=== PATIENT | female | born 1970 | race Hispanic/Latino ===

== ENCOUNTER 2018-01-17 09:46 | Emergency (ER) | payer MEDICARE ==
[2018-01-17 10:03] VITALS: BP 151/85
--- NOTE | 2018-01-17 11:21 | Emergency Department Report ---
ED Anxiety HPI - General Chief Complaint: Anxiety Stated Complaint: SIDE ACHE/DEPRESSION Time Seen by Provider: 01/17/18 10:43 Source: patient Mode of arrival: Ambulatory Limitations: No Limitations - History of Present Illness Initial Comments: Is a 47-year-old female who presents with depression and anxiety. Patient has a history of depression and anxiety and currently taking Depakote and Geodon. She was cleaning a custodial and started crying hysterically. Reports someone took her cleaning supplies and that triggered depression. The group director called the paramedics and had her excoriated to the ER for further evaluation. Patient reports taking medication as prescribed. She is currently feeling tired and lonely. Denies suicidal ideation/homicidal ideation , palpitations, shortness of breath, and chest pain. MD Complaint: anxiety -: This morning Symptoms: other (crying) Place: home Previous History of Same: Yes (depression and anxiety) Severity: mild Quality: similar to prior episodes Provoking factors: emotional stress Improves With: medication, rest Worsens With: thinking about event Associated symptoms: other (crying) - Related Data Home Medications: Home Medications Medication Instructions Recorded Confirmed Last Taken LORazepam [Ativan] 2 mg PO DAILY PRN 07/21/13 07/21/13 Unknown Solifenacin Succinate [Vesicare] 10 mg PO DAILY 07/21/13 07/21/13 Unknown Valacyclovir HCl [Valtrex] 1,000 mg PO DAILY 07/21/13 07/21/13 Unknown buPROPion SR [Wellbutrin Sr] 100 mg PO DAILY 07/21/13 07/21/13 Unknown cloZAPine 200 mg PO DAILY 07/21/13 07/21/13 Unknown cloZAPine 400 mg PO HS 07/21/13 07/21/13 Unknown cloZAPine (NF) 07/21/13 07/21/13 Unknown clonazePAM [KlonoPIN] 2 mg PO HS 07/21/13 07/21/13 Unknown metFORMIN [Glucophage] 500 mg PO BID 07/21/13 07/21/13 Unknown metFORMIN [Glucophage] 500 mg PO BID 07/21/13 07/21/13 Unknown Allergies/Adverse Reactions: Allergies Allergy/AdvReac Type Severity Reaction Status Date / Time aspirin Allergy Unknown Verified 07/21/13 14:36 codeine Allergy Rash Verified 07/21/13 14:36 Penicillins Allergy Rash Verified 07/21/13 14:36 haloperidol [From Haldol] AdvReac Rash Verified 07/21/13 14:36 haloperidol lactate AdvReac Rash Verified 07/21/13 14:36 [From Haldol] ED Review of Systems ROS: Stated complaint: SIDE ACHE/DEPRESSION Other details as noted in HPI Constitutional: denies: chills, fever Respiratory: denies: cough, shortness of breath, wheezing Cardiovascular: denies: chest pain, palpitations Gastrointestinal: denies: abdominal pain, nausea, vomiting, diarrhea Neurological: denies: headache, weakness, paresthesias Psychiatric: anxiety, depression. denies: auditory hallucinations, visual hallucinations, homicidal thoughts, suicidal thoughts ED Past Medical Hx - Past Medical History Hx Psychiatric Treatment: Yes Hx COPD: Yes - Social History Smoking Status: Former Smoker Substance Use Type: None - Medications Home Medications: Home Medications Medication Instructions Recorded Confirmed Last Taken Type LORazepam [Ativan] 2 mg PO DAILY PRN 07/21/13 07/21/13 Unknown History Solifenacin Succinate [Vesicare] 10 mg PO DAILY 07/21/13 07/21/13 Unknown History Valacyclovir HCl [Valtrex] 1,000 mg PO DAILY 07/21/13 07/21/13 Unknown History buPROPion SR [Wellbutrin Sr] 100 mg PO DAILY 07/21/13 07/21/13 Unknown History cloZAPine 200 mg PO DAILY 07/21/13 07/21/13 Unknown History cloZAPine 400 mg PO HS 07/21/13 07/21/13 Unknown History cloZAPine (NF) 07/21/13 07/21/13 Unknown History clonazePAM [KlonoPIN] 2 mg PO HS 07/21/13 07/21/13 Unknown History metFORMIN [Glucophage] 500 mg PO BID 07/21/13 07/21/13 Unknown History metFORMIN [Glucophage] 500 mg PO BID 07/21/13 07/21/13 Unknown History ED Physical Exam - General Limitations: No Limitations General appearance: alert, in no apparent distress - Respiratory Respiratory exam: Present: normal lung sounds bilaterally. Absent: respiratory distress - Cardiovascular Cardiovascular Exam: Present: regular rate, normal rhythm, normal heart sounds. Absent: systolic murmur, diastolic murmur, rubs, gallop - GI/Abdominal GI/Abdominal exam: Present: soft, normal bowel sounds. Absent: organomegaly, mass - Neurological Exam Neurological exam: Present: alert, oriented X3 - Psychiatric Psychiatric exam: Present: depressed, flat affect. Absent: anxious, manic, homicidal ideation, suicidal ideation - Skin Skin exam: Present: warm, dry, intact, normal color. Absent: rash ED Course Vital Signs 01/17/18 09:57 Temperature 98.6 F Pulse Rate 78 Respiratory 16 Rate Blood Pressure 151/85 O2 Sat by Pulse 96 Oximetry ED Medical Decision Making - Medical Decision Making This is a 47-year-old female that presents with anxiety and depression. She has a history of depression and anxiety and COPD. Patient is stable and examined by me. Vitals are stable. No acute signs of distress noted. She is currently taking an Depakote 500 mg by mouth twice a day Geodon 80 mg HS. Reports being followed by primary care doctor. Patient has a flat affect on physical assessment. Denies SI/HI, palpitations, chest pain, and shortness of breath. Will refer to [place] for follow-up with psychologist at [facility]. Continue current medication. Patient agrees to ED plan of care. Discharged home and follow up with PCP in 2 -3 days. Critical care attestation.: If time is entered above; I have spent that time in minutes in the direct care of this critically ill patient, excluding procedure time. ED Disposition Clinical Impression: Depression with anxiety Disposition: DC-01 TO HOME OR SELFCARE Is pt being admited?: No Does the pt Need Aspirin: No Condition: Stable Instructions: Depression (ED), Anxiety (ED) Additional Instructions: Continue taking current medication Depakote and Geodon as prescribed. Increase physical activity as tolerated which can improve self explained. Follow-up with [facility] in 24-72 hours. Return to ER if changes in sleep pattern, decreased in eating, and thoughts of suicide or feeling like you want to hurt others. [facility] - 3-5 Days August Shah [Other] - 3-5 Days Time of Disposition: 11:43 Print Language: GERMAN
== END 2018-01-17 12:10 | disposition home or self-care (01) ==
LOC: ED 09:46
DX: F32.9 Major depressive disorder, single episode, unspecified (principal); F41.9 Anxiety disorder, unspecified; Z87.891 Personal history of nicotine dependence; Z88.6 Allergy status to analgesic agent; Z88.5 Allergy status to narcotic agent; Z88.0 Allergy status to penicillin
CPT/HCPCS: 99282

== ENCOUNTER 2018-02-07 12:51 | Emergency (ER) | payer MEDICARE ==
[2018-02-07 13:01] VITALS: BP 139/73
[2018-02-07] MEDS ORDERED: MOTRIN PO ONE (13:22)
--- NOTE | 2018-02-07 13:32 | Emergency Department Report ---
ED General Adult HPI - General Chief complaint: Pain General Stated complaint: LEG PAIN Time Seen by Provider: 02/07/18 13:06 Source: patient, EMS Mode of arrival: Ambulatory Limitations: No Limitations - History of Present Illness Initial comments: Ms parra is a 47 year-old woman with hx of bipolar d/o, DM, COPD who presents with whole body pain. Was just kicked out of her [facility] this morning. She reports being told she needs to leave and cannot come back. All of her meds are there in the house. Onset of her whole body pain was this morning. No fall, no trauma. Back pain, bilateral arm pain and bilateral leg pain. No trouble walking. No fever. No cough. no trouble breathing. Wants some coffee and ibuprofen. - Related Data Home Medications Medication Instructions Recorded Confirmed Last Taken LORazepam [Ativan] 2 mg PO DAILY PRN 07/21/13 07/21/13 Unknown Solifenacin Succinate [Vesicare] 10 mg PO DAILY 07/21/13 07/21/13 Unknown Valacyclovir HCl [Valtrex] 1,000 mg PO DAILY 07/21/13 07/21/13 Unknown buPROPion SR [Wellbutrin Sr] 100 mg PO DAILY 07/21/13 07/21/13 Unknown cloZAPine 200 mg PO DAILY 07/21/13 07/21/13 Unknown cloZAPine 400 mg PO HS 07/21/13 07/21/13 Unknown cloZAPine (NF) 07/21/13 07/21/13 Unknown clonazePAM [KlonoPIN] 2 mg PO HS 07/21/13 07/21/13 Unknown metFORMIN [Glucophage] 500 mg PO BID 07/21/13 07/21/13 Unknown metFORMIN [Glucophage] 500 mg PO BID 07/21/13 07/21/13 Unknown Allergies Allergy/AdvReac Type Severity Reaction Status Date / Time aspirin Allergy Unknown Verified 07/21/13 14:36 codeine Allergy Rash Verified 07/21/13 14:36 Penicillins Allergy Rash Verified 07/21/13 14:36 haloperidol [From Haldol] AdvReac Rash Verified 07/21/13 14:36 haloperidol lactate AdvReac Rash Verified 07/21/13 14:36 [From Haldol] ED Review of Systems ROS: Stated complaint: LEG PAIN Other details as noted in HPI Comment: All other systems reviewed and negative ED Past Medical Hx - Past Medical History Previous Medical History?: Yes Hx Diabetes: Yes Hx Psychiatric Treatment: Yes (bipolar, depression) Hx COPD: Yes - Surgical History Past Surgical History?: No - Social History Smoking Status: Former Smoker Substance Use Type: None - Medications Home Medications: Home Medications Medication Instructions Recorded Confirmed Last Taken Type LORazepam [Ativan] 2 mg PO DAILY PRN 07/21/13 07/21/13 Unknown History Solifenacin Succinate [Vesicare] 10 mg PO DAILY 07/21/13 07/21/13 Unknown History Valacyclovir HCl [Valtrex] 1,000 mg PO DAILY 07/21/13 07/21/13 Unknown History buPROPion SR [Wellbutrin Sr] 100 mg PO DAILY 07/21/13 07/21/13 Unknown History cloZAPine 200 mg PO DAILY 07/21/13 07/21/13 Unknown History cloZAPine 400 mg PO HS 07/21/13 07/21/13 Unknown History cloZAPine (NF) 07/21/13 07/21/13 Unknown History clonazePAM [KlonoPIN] 2 mg PO HS 07/21/13 07/21/13 Unknown History metFORMIN [Glucophage] 500 mg PO BID 07/21/13 07/21/13 Unknown History metFORMIN [Glucophage] 500 mg PO BID 07/21/13 07/21/13 Unknown History ED Physical Exam - General Limitations: No Limitations General appearance: alert, in no apparent distress - Head Head exam: Present: atraumatic, normocephalic - Eye Eye exam: Present: normal appearance - ENT ENT exam: Present: normal exam, mucous membranes moist - Neck Neck exam: Present: normal inspection. Absent: tenderness - Respiratory Respiratory exam: Present: normal lung sounds bilaterally. Absent: respiratory distress, wheezes, rales - Cardiovascular Cardiovascular Exam: Present: regular rate, normal rhythm. Absent: systolic murmur, diastolic murmur, rubs, gallop - GI/Abdominal GI/Abdominal exam: Present: soft. Absent: distended, tenderness - Extremities Exam Extremities exam: Present: normal inspection, full ROM, normal capillary refill. Absent: tenderness, pedal edema, joint swelling - Back Exam Back exam: Present: normal inspection. Absent: tenderness, CVA tenderness (R), CVA tenderness (L), paraspinal tenderness, vertebral tenderness, rash noted - Neurological Exam Neurological exam: Present: alert, oriented X3 - Psychiatric Psychiatric exam: Present: normal affect, normal mood - Skin Skin exam: Present: warm, dry, intact, normal color. Absent: rash, petechiae, abrasion, ecchymosis ED Course Vital Signs 02/07/18 02/07/18 12:56 13:20 Temperature 98.7 F Pulse Rate 87 Respiratory 16 18 Rate Blood Pressure 139/73 O2 Sat by Pulse 98 Oximetry ED Medical Decision Making - Medical Decision Making Ms Parra is a 47 year-old woman with diffuse body aches after being kicked out of her [facility]. no trauma. Well appearing on exam. Unable to elicit pain. Ibuprofen 400mg PO. Will have case management talk with patient about how to get her belongings back. No apparent injury, well appearing. DC Critical care attestation.: If time is entered above; I have spent that time in minutes in the direct care of this critically ill patient, excluding procedure time. ED Disposition Clinical Impression: Myalgia Disposition: DC-01 TO HOME OR SELFCARE Is pt being admited?: No Condition: Stable Instructions: Back Pain (ED), Musculoskeletal Pain (ED) Referrals: PRIMARY CARE, [Primary Care Provider] - 3-5 Days
[2018-02-07] MEDS: GEODON PO SCH ×2 (20:25→22:12)
[2018-02-08] MEDS: GEODON PO SCH (11:31)
== END 2018-02-08 11:36 | disposition home or self-care (01) ==
LOC: ED 12:51
DX: M79.1 Myalgia (principal); E11.9 Type 2 diabetes mellitus without complications; F31.9 Bipolar disorder, unspecified; J44.9 Chronic obstructive pulmonary disease, unspecified; Z88.4 Allergy status to anesthetic agent; Z88.0 Allergy status to penicillin; Z88.5 Allergy status to narcotic agent; Z88.8 Allergy status to other drugs, medicaments and biological substances; Z79.899 Other long term (current) drug therapy
CPT/HCPCS: 99283

== ENCOUNTER 2018-02-12 10:03 | Emergency (ER) | payer MEDICARE ==
[2018-02-12 10:11] VITALS: BP 138/80
[2018-02-12] MEDS ORDERED: DELTASONE PO ONE (10:56)
[2018-02-12] MEDS ORDERED: PROVENTIL IH ONE (10:56)
[2018-02-12] MEDS ORDERED: ATROVENT IH ONE (10:56)
--- NOTE | 2018-02-12 10:59 | Emergency Department Report ---
Blank Doc - Documentation Documentation: Patient is a 47-year-old female who is presenting with cough congestion for approximately 2 weeks. Patient states that cough is productive of green sputum. Patient does feel shortness of breath. Patient denies any fevers nausea and vomiting. Brief physical exam the patient does salguero decreased breath sounds diffusely with a very mild wheeze. O2 sat is 93% on room air. Patient can speak in full sentences however. Patient taken to a treatment room to be given albuterol treatment to see if her breath sounds will improve and chest x-ray redone rule out pneumonia patient will be reassessed. Ve
--- NOTE | 2018-02-12 11:53 | Emergency Department Report ---
- General Chief Complaint: Upper Respiratory Infection Stated Complaint: COUGH/COLD Time Seen by Provider: 02/12/18 10:51 Source: patient Mode of arrival: Ambulatory Limitations: No Limitations - History of Present Illness Initial Comments: This is a 47-year-old female nontoxic, well nourished in appearance, no acute signs of distress presents to the ED with c/o of productive cough, wheezing, rhinorrhea, nasal congestion x1 weekl. Patient describes productive cough as yellow mucus production. Patient denies any sick contact. Patient denies any recent travels, long car, recent hospital stays. Patient denies any calf pain or calf tenderness. Patient denies any chest pain, short of breath, fever, chills, nausea, vomiting, hemoptysis, numbness, tingling, headache or stiff neck. PMH includes DM. MD Complaint: cough, rhinorrhea, nasal congestion, other (wheezing) -: week(s) (1) Severity: mild Severity scale (0 -10): 0 Consistency: constant Improves With: nothing Worsens With: nothing Associated Symptoms: rhinorrhea, nasal congestion, cough. denies: fever, chills , myalgias, diaphoresis, headache, sore throat, stiff neck, chest pain, shortness of breath, abdominal pain, nausea, vomiting, diarrhea, rash, confusion , right sweats, weight loss, epistaxis, hoarseness, ear pain - Related Data Previous Rx's Medication Instructions Recorded Last Taken Type Divalproex ER [Depakote ER] 500 mg PO QDAY #30 tablet 02/08/18 Unknown Rx Ziprasidone HCl [Geodon] 80 mg PO BID #60 capsule 02/08/18 Unknown Rx ALBUTEROL Inhaler [ProAir HFA 2 puff IH QID PRN #1 inhalation 02/12/18 Unknown Rx Inhaler] Azithromycin [Zithromax Z-OSKAR] 250 mg PO DAILY #6 tablet 02/12/18 Unknown Rx Allergies Allergy/AdvReac Type Severity Reaction Status Date / Time aspirin Allergy Unknown Verified 07/21/13 14:36 codeine Allergy Rash Verified 07/21/13 14:36 Penicillins Allergy Rash Verified 07/21/13 14:36 haloperidol [From Haldol] AdvReac Rash Verified 07/21/13 14:36 haloperidol lactate AdvReac Rash Verified 07/21/13 14:36 [From Haldol] ED Review of Systems ROS: Stated complaint: COUGH/COLD Other details as noted in HPI Constitutional: denies: chills, fever Eyes: denies: eye pain, eye discharge, vision change ENT: denies: ear pain, throat pain Respiratory: cough, wheezing. denies: shortness of breath Cardiovascular: denies: chest pain, palpitations Endocrine: no symptoms reported Gastrointestinal: denies: abdominal pain, nausea, diarrhea Genitourinary: denies: urgency, dysuria, discharge Musculoskeletal: denies: back pain, joint swelling, arthralgia Skin: denies: rash, lesions Neurological: denies: headache, weakness, paresthesias Psychiatric: denies: anxiety, depression Hematological/Lymphatic: denies: easy bleeding, easy bruising ED Past Medical Hx - Past Medical History Hx Diabetes: Yes Hx Psychiatric Treatment: Yes (bipolar, depression) Hx COPD: Yes - Social History Smoking Status: Former Smoker Substance Use Type: None - Medications Home Medications: Home Medications Medication Instructions Recorded Confirmed Last Taken Type Divalproex ER [Depakote ER] 500 mg PO QDAY #30 tablet 02/08/18 Unknown Rx Ziprasidone HCl [Geodon] 80 mg PO BID #60 capsule 02/08/18 Unknown Rx ALBUTEROL Inhaler [ProAir HFA 2 puff IH QID PRN #1 inhalation 02/12/18 Unknown Rx Inhaler] Azithromycin [Zithromax Z-OSKAR] 250 mg PO DAILY #6 tablet 02/12/18 Unknown Rx ED Physical Exam - General Limitations: No Limitations General appearance: alert, in no apparent distress - Head Head exam: Present: atraumatic, normocephalic - Eye Eye exam: Present: normal appearance Pupils: Present: normal accommodation - ENT ENT exam: Present: normal exam, normal orophraynx, mucous membranes moist, TM's normal bilaterally, normal external ear exam - Neck Neck exam: Present: normal inspection, full ROM. Absent: tenderness, meningismus, lymphadenopathy - Respiratory Respiratory exam: Present: normal lung sounds bilaterally, wheezes (bilateral upper and lower lobes). Absent: respiratory distress, rales, rhonchi, stridor, chest wall tenderness, accessory muscle use, decreased breath sounds, prolonged expiratory - Cardiovascular Cardiovascular Exam: Present: regular rate, normal rhythm, normal heart sounds. Absent: bradycardia, tachycardia, irregular rhythm, systolic murmur, diastolic murmur, rubs, gallop - GI/Abdominal GI/Abdominal exam: Present: soft, normal bowel sounds - Extremities Exam Extremities exam: Present: normal inspection, full ROM, normal capillary refill. Absent: tenderness - Back Exam Back exam: Present: normal inspection, full ROM - Neurological Exam Neurological exam: Present: alert, oriented X3, normal gait - Psychiatric Psychiatric exam: Present: normal affect, normal mood - Skin Skin exam: Present: warm, dry, intact, normal color. Absent: rash ED Course Vital Signs 02/12/18 10:07 Temperature 98.2 F Pulse Rate 89 Respiratory 16 Rate Blood Pressure 138/80 O2 Sat by Pulse 93 Oximetry - Reevaluation(s) Reevaluation #1: 02/12/18 11:53 Patient is speaking in full sentences with no signs of distress noted. - Consultations Consultation #1: 02/12/18 11:53 Patient has been consulted with Dr. Banegas about patient history, physical exam , and labs and examined and screened patient and agrees to ED plan of care and discharge plan of care. ED Medical Decision Making - Medical Decision Making This is a 47-year-old female that presents with bronchitis. Patient is stable and was examined by me. Chest x-ray has been obtained and dictated by radiologist with mild patchy area may be atelectasis versus low suspicion was pneumonia. Patient is notified of x-ray results with no questions noted. Due to patient having symptoms of upper respiratory infection and symptoms of influenza and worsening I will treat patient empirically with zpak. Patient was instructed to increase hydration, rest and take Motrin for fever episodes. Patient received steroids and breathing treatment in the ED. Wheezing subsided after medical treatment. Patient stated that she feels much better. Vitals stable. Patient is nonfebrile and normal heart rate. Patient was instructed Follow-up with a primary care doctor in 3-5 days or if symptoms worsen and continue return to emergency room as soon as possible. At time time of discharge, the patient does not seem toxic or ill in appearance. No acute signs of distress noted. Patient agrees to discharge treatment plan of care. No further questions noted by the patient. Critical care attestation.: If time is entered above; I have spent that time in minutes in the direct care of this critically ill patient, excluding procedure time. ED Disposition Clinical Impression: Bronchitis Disposition: DC-01 TO HOME OR SELFCARE Is pt being admited?: No Does the pt Need Aspirin: No Condition: Stable Instructions: Albuterol (By breathing), Azithromycin (By mouth), Acute Bronchitis (ED) Additional Instructions: Follow-up with a primary care doctor in 3-5 days or if symptoms worsen and continue return to emergency room as soon as possible. Prescriptions: ALBUTEROL Inhaler [ProAir HFA Inhaler] 2 puff IH QID PRN #1 inhalation PRN Reason: Shortness Of Breath Azithromycin [Zithromax Z-OSKAR] 250 mg PO DAILY #6 tablet Referrals: PRIMARY CAREMD [Primary Care Provider] - 3-5 Days VIVIANE MALHOTRA MD [Staff Physician] - 3-5 Days [facility] [Outside] - 3-5 Days [facility] [Outside] - 3-5 Days
--- NOTE | 2018-02-12 11:55 | XRay Report ---
PA and lateral chest: Cough. Minimal patchy changes are noted adjacent to the lower right hilum in the frontal projection. The left lung is clear. The hilar and mediastinal regions are unremarkable. No vascular congestion. Impression: Mild patchy changes on the right. This may represent atelectasis with low suspicion of pneumonia.
== END 2018-02-12 12:22 | disposition home or self-care (01) ==
LOC: ED 10:03
DX: J40 Bronchitis, not specified as acute or chronic (principal); J44.9 Chronic obstructive pulmonary disease, unspecified; E11.9 Type 2 diabetes mellitus without complications; F31.9 Bipolar disorder, unspecified; Z87.891 Personal history of nicotine dependence; Z88.6 Allergy status to analgesic agent; Z88.5 Allergy status to narcotic agent; Z88.0 Allergy status to penicillin
CPT/HCPCS: 71046; 94640; 99283; J7512

== ENCOUNTER 2018-02-15 16:36 | Emergency (ER) | payer MEDICARE ==
--- NOTE | 2018-02-15 17:19 | Emergency Department Report ---
ED General Adult HPI - General Chief complaint: Medical Clearance Stated complaint: SHOULDER PAIN Time Seen by Provider: 02/15/18 17:17 Source: patient, EMS (ems notes not available at time of chart dictation), RN notes reviewed, old records reviewed Mode of arrival: Ambulatory Limitations: No Limitations - History of Present Illness Initial comments: This is a 47-year-old female who is unknown to this provider, has a past medical history of psychiatric disease, who presents to the ER with multiple complaints. First complaint is cough productive of greenish sputum for 3 weeks. It is intermittent, nonradiating, and does not have exacerbating or relieving factors. Her second complaint is almost falling out of bed and hitting her head. However , she reports that she did not actually fall and she did not hit her head. Her next complaint is left foot pain and right foot pain after a slip and trip. However she did not hit her knees, back or neck. Her pain is achy, and increases with palpation and decreases with rest. It does not radiate anywhere. -: Sudden Location: left, right, lower extremity Radiation: non-radiation Quality: aching Consistency: intermittent Improves with: rest Worsens with: movement Associated Symptoms: cough. denies: confusion, chest pain, diaphoresis, fever/ chills, headaches, loss of appetite, malaise, nausea/vomiting, rash, seizure, shortness of breath, syncope, weakness - Related Data Home Medications Medication Instructions Recorded Confirmed Last Taken Divalproex ER [Depakote ER] 500 mg PO BID 02/15/18 02/15/18 02/15/18 09:00 500mg Ziprasidone HCl [Geodon] 80 mg PO QHS 02/15/18 02/15/18 02/14/18 21:00 80mg Previous Rx's Medication Instructions Recorded Last Taken Type Albuterol Sulfate [Proair 90 mcg IH Q4HR PRN #2 aer.pow.ba 02/15/18 Unknown Rx Respiclick] Benzonatate [Tessalon Perles] 100 mg PO Q8HR PRN #30 capsule 02/15/18 Unknown Rx Ibuprofen [Motrin] 600 mg PO Q8H PRN #30 tablet 02/15/18 Unknown Rx Allergies Allergy/AdvReac Type Severity Reaction Status Date / Time aspirin Allergy Unknown Verified 07/21/13 14:36 codeine Allergy Rash Verified 07/21/13 14:36 Penicillins Allergy Rash Verified 07/21/13 14:36 haloperidol [From Haldol] AdvReac Rash Verified 07/21/13 14:36 haloperidol lactate AdvReac Rash Verified 07/21/13 14:36 [From Haldol] ED Review of Systems ROS: Stated complaint: SHOULDER PAIN Other details as noted in HPI Constitutional: denies: fever Eyes: denies: vision change ENT: denies: epistaxis Respiratory: cough Cardiovascular: denies: chest pain Gastrointestinal: denies: abdominal pain Genitourinary: denies: dysuria Musculoskeletal: arthralgia, myalgia Neurological: denies: weakness Psychiatric: anxiety ED Past Medical Hx - Past Medical History Hx Diabetes: Yes Hx Psychiatric Treatment: Yes (bipolar, depression) Hx COPD: Yes - Surgical History Past Surgical History?: No - Social History Smoking Status: Former Smoker Substance Use Type: None - Medications Home Medications: Home Medications Medication Instructions Recorded Confirmed Last Taken Type Albuterol Sulfate [Proair 90 mcg IH Q4HR PRN #2 aer.pow.ba 02/15/18 Unknown Rx Respiclick] Benzonatate [Tessalon Perles] 100 mg PO Q8HR PRN #30 capsule 02/15/18 Unknown Rx Divalproex ER [Depakote ER] 500 mg PO BID 02/15/18 02/15/18 02/15/18 09:00 History 500mg Ibuprofen [Motrin] 600 mg PO Q8H PRN #30 tablet 02/15/18 Unknown Rx Ziprasidone HCl [Geodon] 80 mg PO QHS 02/15/18 02/15/18 02/14/18 21:00 History 80mg ED Physical Exam - General Limitations: No Limitations General appearance: alert, in no apparent distress - Head Head exam: Present: atraumatic, normocephalic - Eye Eye exam: Present: normal appearance, PERRL, EOMI, other (visual acuity intact to finger counting, color perception, reading at a close distance). Absent: nystagmus - ENT ENT exam: Present: normal exam, normal orophraynx, mucous membranes moist, normal external ear exam - Neck Neck exam: Present: normal inspection, full ROM - Respiratory Respiratory exam: Present: normal lung sounds bilaterally. Absent: respiratory distress, chest wall tenderness - Cardiovascular Cardiovascular Exam: Present: regular rate, normal rhythm, normal heart sounds. Absent: bradycardia, tachycardia, irregular rhythm, systolic murmur, diastolic murmur, rubs, gallop - GI/Abdominal GI/Abdominal exam: Present: soft, normal bowel sounds. Absent: distended, tenderness, guarding, rigid, pulsatile mass - Extremities Exam Extremities exam: Present: normal inspection, full ROM, normal capillary refill. Absent: pedal edema, joint swelling, calf tenderness - Back Exam Back exam: Present: normal inspection, full ROM. Absent: tenderness, CVA tenderness (R), paraspinal tenderness, vertebral tenderness - Neurological Exam Neurological exam: Present: alert (able to add, multiply, recall 3 out of 3 words at time 0, and time 5 minutes.), oriented X3, CN II-XII intact, normal gait, other (Extraocular movements intact. Tongue midline. No facial droop. Facial sensation intact to light touch in the V1, V2, V3 distribution bilaterally. 5 and 5 strength in 4 extremities.. Sensation is intact to light touch in 4 extremities.). Absent: motor sensory deficit - Psychiatric Psychiatric exam: Present: anxious - Skin Skin exam: Present: warm, dry, intact, normal color. Absent: rash ED Course Vital Signs 02/15/18 02/15/18 02/15/18 16:47 16:51 16:55 Temperature Pulse Rate 88 83 73 Respiratory 16 23 8 L Rate Blood Pressure 137/63 137/63 O2 Sat by Pulse 92 91 98 Oximetry 02/15/18 02/15/18 02/15/18 17:00 17:01 17:04 Temperature 99.1 F 99.1 F Pulse Rate 88 72 Respiratory 13 7 L Rate Blood Pressure 137/63 111/64 O2 Sat by Pulse 97 98 Oximetry 02/15/18 02/15/18 02/15/18 17:05 17:10 17:26 Temperature Pulse Rate 75 85 Respiratory 13 23 16 Rate Blood Pressure 111/64 111/64 O2 Sat by Pulse 99 96 95 Oximetry ED Medical Decision Making - Lab Data Vital Signs 02/15/18 02/15/18 02/15/18 16:47 16:51 16:55 Temperature Pulse Rate 88 83 73 Respiratory 16 23 8 L Rate Blood Pressure 137/63 137/63 O2 Sat by Pulse 92 91 98 Oximetry 02/15/18 02/15/18 02/15/18 17:00 17:01 17:04 Temperature 99.1 F 99.1 F Pulse Rate 88 72 Respiratory 13 7 L Rate Blood Pressure 137/63 111/64 O2 Sat by Pulse 97 98 Oximetry 02/15/18 02/15/18 02/15/18 17:05 17:10 17:26 Temperature Pulse Rate 75 85 Respiratory 13 23 16 Rate Blood Pressure 111/64 111/64 O2 Sat by Pulse 99 96 95 Oximetry - Radiology Data Radiology results: report reviewed, image reviewed X-ray the chest is negative for acute disease - Medical Decision Making Differential diagnosis, including but not limited to: Sprain, strain, bronchitis , pneumonia, Gen. medical clearance Assessment and plan: 47-year-old female with nonspecific complaints, has a normal neurologic examination, clinically sober, walking with a steady gait, and score of 0, [place] Coma Scale of 15, x-ray of the chest is clear, no lower extremity tenderness on exam, 2+ pulses noted in the bilateral upper, lower extremities. Compartments soft. No long bony tenderness. The pelvis is stable. There does not appear to be an emergent condition at this time, and the patient is medically suitable to be returned to her personal [place] [facility] X-ray the chest is unremarkable she'll be discharged with Tessalon Perles and as needed breathing treatments. Critical care attestation.: If time is entered above; I have spent that time in minutes in the direct care of this critically ill patient, excluding procedure time. ED Disposition Clinical Impression: Foot pain, Bronchitis Disposition: DC-01 TO HOME OR SELFCARE Is pt being admited?: No Does the pt Need Aspirin: No Condition: Stable Instructions: Chronic Bronchitis (ED) Additional Instructions: Take the medications as directed. Do not consume tobacco or tobacco products or smoke anything if the patient is indeed smoking anything. Follow up with a primary care doctor within the next month. Return to the ER right away with new pain, worsened pain, migration of pain, fevers, chills, lethargy, irritability, projectile vomiting, change in mental status, confusion, inability to tolerate liquid feeds. Referrals: PRIMARY CARE, [Primary Care Provider] - 3-5 Days VIVIANE SEVILLA MD [Staff Physician] - 3-5 Days ROBIN PEREZ MD [Staff Physician] - 3-5 Days
[2018-02-15] MEDS: TORADOL IM ONE (17:25)
[2018-02-15 17:26] VITALS: BP 111/64
--- NOTE | 2018-02-15 18:06 | XRay Report ---
FINAL REPORT EXAM: XR CHEST ROUTINE 2V HISTORY: cough sputum production TECHNIQUE: Two view chest PA and lateral PRIORS: None. FINDINGS: Cardiac and mediastinal contours are unremarkable. No focal pulmonary infiltrate is identified. No pleural fluid collection seen. Pulmonary vasculature is unremarkable. Remote healed left clavicular fracture noted. IMPRESSION: No acute abnormality identified in the chest
[2018-02-15] MEDS ORDERED: GEODON ONE (19:57)
[2018-02-15] MEDS ORDERED: GEODON PO SCH (22:00)
[2018-02-15] MEDS ORDERED: NON-FORMULARY (Ziprasidone Hcl [Geodon] 80 MG) PO SCH (22:00)
== END 2018-02-15 20:20 | disposition home or self-care (01) ==
LOC: ED 16:36
DX: J40 Bronchitis, not specified as acute or chronic (principal); M79.672 Pain in left foot; E11.9 Type 2 diabetes mellitus without complications; F31.9 Bipolar disorder, unspecified; J44.9 Chronic obstructive pulmonary disease, unspecified; Z87.891 Personal history of nicotine dependence
CPT/HCPCS: 71046; 96372; 99284; J1885

== ENCOUNTER 2018-02-16 09:59 | Emergency (ER) | payer MEDICARE ==
[2018-02-16 10:44] VITALS: BP 126/90
[2018-02-16] MEDS ORDERED: TYLENOL PO ONE (11:49)
--- NOTE | 2018-02-16 12:01 | Emergency Department Report ---
Upper Extremity - HPI Chief Complaint: Shoulder Injury Stated Complaint: SHOULDER PAIN Time Seen by Provider: 02/16/18 11:33 Upper Extremity: Left Shoulder Occurred When: >5 Days Mechanism: Other Severity: mild Symptoms: Yes Pain with Movement, Yes Deformity, No Limited Range of Movement, No Numbness, No Weakness, No Swelling, No Bruising/Ecchymosis, No Laceration or Abrasion Other History: Ms parra is a 47 year-old woman who presents with chronic left shoulder pain. had clavicle fracture years ago and is having persistent pain. Also needs to find a place to live. Was here for same issue yesterday. No numbness, no tingling, able to use R arm without difficulty. no new injury ED Review of Systems ROS: Stated complaint: SHOULDER PAIN Other details as noted in HPI Comment: All other systems reviewed and negative ED Past Medical Hx - Past Medical History Hx Diabetes: Yes Hx Psychiatric Treatment: Yes (bipolar, depression) Hx COPD: Yes - Social History Smoking Status: Current Every Day Smoker Substance Use Type: None, Alcohol - Medications Home Medications: Home Medications Medication Instructions Recorded Confirmed Last Taken Type Albuterol Sulfate [Proair 90 mcg IH Q4HR PRN #2 aer.pow.ba 02/15/18 Unknown Rx Respiclick] Benzonatate [Tessalon Perles] 100 mg PO Q8HR PRN #30 capsule 02/15/18 Unknown Rx Divalproex ER [Depakote ER] 500 mg PO BID 02/15/18 02/15/18 02/15/18 09:00 History 500mg Ibuprofen [Motrin] 600 mg PO Q8H PRN #30 tablet 02/15/18 Unknown Rx Ziprasidone HCl [Geodon] 80 mg PO QHS 02/15/18 02/15/18 02/14/18 21:00 History 80mg Upper Extremity Exam - Exam General: Vital signs noted. No distress. Alert and acting appropriately. Head and Torso: No Neck Tenderness, No Back Tenderness Shoulder Exam: Yes Normal Range of Motion in Shoulder, No Shoulder Tenderness, No Clavicle Tenderness (palpable old fracture. no swelling, no bruising. ), No Shoulder Deformity, No AC Joint Tenderness Arm Exam: No Arm/Humerus Tenderness, No Arm Deformity Elbow: Yes Normal Range of Motion in Elbow, No Elbow Tenderness, No Elbow Deformity Forearm: No Forearm Tenderness, No Forearm Deformity CMS Exam: Yes Normal Distal Pulses, Yes Normal Capillary Refill, Yes Normal Distal Sensation, No Broken Skin ED Course Vital Signs 02/16/18 10:39 Temperature 98.2 F Pulse Rate 83 Respiratory 18 Rate Blood Pressure 126/90 O2 Sat by Pulse 95 Oximetry ED Medical Decision Making - Medical Decision Making Ms Parra is a 47 year-old woman with chronic clavicle pain from previous fracture. no new injury. Exam without swelling, bruising, limitation of use of R arm. Giving tylenol PO. case management here to assist in getting back to her [facility] or finding new place to live. Safe for dc when she has a place to go. Critical care attestation.: If time is entered above; I have spent that time in minutes in the direct care of this critically ill patient, excluding procedure time. ED Disposition Clinical Impression: Shoulder pain Qualifiers: Chronicity: chronic Laterality: left Qualified Code(s): M25.512 - Pain in left shoulder; G89.29 - Other chronic pain Disposition: DC-01 TO HOME OR SELFCARE Is pt being admited?: No Does the pt Need Aspirin: No Condition: Stable Instructions: Arthralgia (ED), Osteoarthritis (ED) Referrals: PRIMARY CARE, [Primary Care Provider] - 3-5 Days
== END 2018-02-16 14:10 | disposition home or self-care (01) ==
LOC: ED 09:59
DX: M25.512 Pain in left shoulder (principal); G89.29 Other chronic pain; E11.9 Type 2 diabetes mellitus without complications; J44.9 Chronic obstructive pulmonary disease, unspecified; F31.9 Bipolar disorder, unspecified; F32.9 Major depressive disorder, single episode, unspecified; F17.200 Nicotine dependence, unspecified, uncomplicated; Z88.0 Allergy status to penicillin; Z88.5 Allergy status to narcotic agent; Z88.6 Allergy status to analgesic agent; Z88.8 Allergy status to other drugs, medicaments and biological substances
CPT/HCPCS: 99282

== ENCOUNTER 2018-02-17 08:05 | Emergency (ER) | payer MEDICARE | END 2018-02-17 09:14 | disposition left against medical advice (07) | LOC: ED 08:05 | DX: R25.2 Cramp and spasm (principal); Z88.6 Allergy status to analgesic agent; Z88.5 Allergy status to narcotic agent; Z88.0 Allergy status to penicillin; Z53.21 Procedure and treatment not carried out due to patient leaving prior to being seen by health care provider ==

== ENCOUNTER 2018-02-17 11:50 | Emergency (ER) | payer MEDICARE ==
[2018-02-17 17:40] VITALS: BP 140/78
[2018-02-18] MEDS ORDERED: TESSALON PERLES PO ONE (05:53)
[2018-02-18] MEDS ORDERED: TYLENOL PO ONE (05:53)
--- NOTE | 2018-02-18 05:58 | Emergency Department Report ---
HPI - General Chief Complaint: Psych Time Seen by Provider: 02/18/18 05:52 - HPI HPI: The patient is a 47-year-old female presents for evaluation of cough and neck pain. The patient reports 1 day of a nonproductive cough, mild, and associated with bilateral lower neck pain, mild in severity, aching quality, exacerbated with coughing or movement of the neck. The patient denies fever, trauma to the neck, chest pain, dyspnea, back pain, syncope, hemoptysis, abdominal pain, chills, night sweats. ED Past Medical Hx - Past Medical History Hx Diabetes: Yes Hx Psychiatric Treatment: Yes (bipolar, depression) Hx COPD: Yes - Social History Smoking Status: Former Smoker Substance Use Type: None - Medications Home Medications: Home Medications Medication Instructions Recorded Confirmed Last Taken Type Albuterol Sulfate [Proair 90 mcg IH Q4HR PRN #2 aer.pow.ba 02/15/18 Unknown Rx Respiclick] Benzonatate [Tessalon Perles] 100 mg PO Q8HR PRN #30 capsule 02/15/18 Unknown Rx Divalproex ER [Depakote ER] 500 mg PO BID 02/15/18 02/15/18 02/15/18 09:00 History 500mg Ibuprofen [Motrin] 600 mg PO Q8H PRN #30 tablet 02/15/18 Unknown Rx Ziprasidone HCl [Geodon] 80 mg PO QHS 02/15/18 02/15/18 02/14/18 21:00 History 80mg ED Review of Systems ROS: Stated complaint: VOMIT/BODY PAIN Other details as noted in HPI Constitutional: denies: fever ENT: denies: throat or neck pain Respiratory: reports: cough, shortness of breath Cardiovascular: denies: chest pain Endocrine: denies unexplained weight loss or gain Gastrointestinal: denies: abdominal pain, nausea Genitourinary: denies: dysuria Musculoskeletal: reports neck pain denies: leg swelling Skin: denies: rash Neurological: denies: headache Hematological/Lymphatic: denies: easy bleeding or easy bruising Psych: denies sadness or hopelessness Physical Exam - Physical Exam Vital Signs: Vital Signs 02/17/18 02/17/18 12:23 17:39 Temperature 97.5 F L Pulse Rate 81 78 Respiratory 16 Rate Blood Pressure 142/77 Blood Pressure 140/78 [Right] O2 Sat by Pulse 93 99 Oximetry Physical Exam: General: well-nourished, well-developed, no acute distress Head: Normocephalic, atraumatic Eyes: normal sclera ENT: Mucous membranes are pink and moist Neck: trachea midline, neck supple, No neck stiffness, no cervical adenopathy, bilateral low cervical paraspinal musculature tenderness to palpation present, no midline cervical spine tenderness, no spinous step-off or obvious deformity, no sensation or motor deficit in the arms or legs bilaterally Respiratory: Breath sounds equal bilaterally, no wheezing, rales, or rhonchi Cardio: S1 and S2 present, no murmurs, rubs, gallops, capillary refill is brisk Abdomen: Normoactive bowel sounds, soft abdomen, no rigidity, no guarding or rebound tenderness Chest WALL/Back: No tenderness to palpation of the chest wall, no CVA tenderness with percussion Musc: No pitting edema Skin: No rash Neuro: no facial drooping, normal speech Psych: Normal affect ED Course Vital Signs 02/17/18 02/17/18 12:23 17:39 Temperature 97.5 F L Pulse Rate 81 78 Respiratory 16 Rate Blood Pressure 142/77 Blood Pressure 140/78 [Right] O2 Sat by Pulse 93 99 Oximetry ED Medical Decision Making - Medical Decision Making The patient was seen and examined by myself. The patient is placed on a awake overnight monitor and continuous pulse ox. On initial evaluation, the patient was found to be in no distress. Evaluation orders were placed. The patient is given pain medicine cough medicine. X-ray of the cervical spine is negative for emergency disease process. Medical records were reviewed and revealed the patient received x-ray of the chest 2 days ago, which was unremarkable. The patient was reevaluated and reported that their symptoms were markedly improved. The patient is stable for discharge with outpatient follow-up. The patient is given follow-up and return instructions. The patient expressed understanding and agreed with the plan. The patient is discharged in stable condition. Critical care attestation.: If time is entered above; I have spent that time in minutes in the direct care of this critically ill patient, excluding procedure time. ED Disposition Clinical Impression: Neck pain, acute, Acute upper respiratory infection Disposition: TO HOME OR SELFCARE Is pt being admited?: No Does the pt Need Aspirin: No Condition: Stable Instructions: Upper Respiratory Infection (ED), Musculoskeletal Pain (ED) Referrals: PRIMARY CARE, [Primary Care Provider] - 3-5 Days Time of Disposition: 06:01
--- NOTE | 2018-02-18 06:39 | XRay Report ---
FINAL REPORT PROCEDURE: XR SPINE CERVICAL 2-3V TECHNIQUE: Cervical spine complete, including AP, lateral, open-mouth odontoid, oblique and flexion and extension studies. CPT 03706 HISTORY: posterior lower neck pain COMPARISON: No prior studies are available for comparison. FINDINGS: Prevertebral soft tissues: Normal . Alignment in neutral position: Normal . Vertebral body movement with flexion and extension: Physiologic . Vertebral body heights/Disk spaces: Normal . Fracture(s): None . Neural foramina: Normal . Facets: Normal . Bone mineralization: Normal . IMPRESSION: Normal Examination
== END 2018-02-18 06:45 | disposition home or self-care (01) ==
LOC: ED 11:50
DX: M54.2 Cervicalgia (principal); J06.9 Acute upper respiratory infection, unspecified; F31.9 Bipolar disorder, unspecified; J44.9 Chronic obstructive pulmonary disease, unspecified; Z87.891 Personal history of nicotine dependence
CPT/HCPCS: 72040; 99283

== ENCOUNTER → 2018-03-22 22:45 | Emergency (ER) | payer MEDICARE | END | disposition left against medical advice (07) | LOC: ED 22:45 | DX: R56.9 Unspecified convulsions (principal); Z88.5 Allergy status to narcotic agent; Z88.0 Allergy status to penicillin; Z88.8 Allergy status to other drugs, medicaments and biological substances; Z88.6 Allergy status to analgesic agent; Z53.21 Procedure and treatment not carried out due to patient leaving prior to being seen by health care provider ==

== ENCOUNTER 2018-03-23 13:55 | Emergency (ER) | payer MEDICARE ==
[2018-03-23 14:26] VITALS: BP 156/68
--- NOTE | 2018-03-23 15:47 | Emergency Department Report ---
ED General Adult HPI - General Chief complaint: Pain General Stated complaint: SEVERE PAIN Time Seen by Provider: 03/23/18 15:44 Source: patient Mode of arrival: Ambulatory Limitations: No Limitations - History of Present Illness Initial comments: Patient presents to the ED for generalized pain. Patient states she left the hospital this morning AGAINST MEDICAL ADVICE to go to [facility] to get something to eat because she was hungry. Patient states she would like some pain medicine to help with her pain. When I ask her where her pain is located she is not able to answer. Patient denies suicidal or homicidal ideation. Patient also denies auditory or visual hallucinations. - Related Data Home Medications Medication Instructions Recorded Confirmed Last Taken Divalproex ER [Depakote ER] 500 mg PO BID 02/15/18 03/18/18 02/15/18 09:00 500mg Ziprasidone HCl [Geodon] 80 mg PO QHS 02/15/18 03/18/18 02/14/18 21:00 80mg Previous Rx's Medication Instructions Recorded Last Taken Type Albuterol Sulfate [Proair 90 mcg IH Q4HR PRN #2 aer.pow.ba 02/15/18 Unknown Rx Respiclick] Benzonatate [Tessalon Perles] 100 mg PO Q8HR PRN #30 capsule 02/15/18 Unknown Rx Ibuprofen [Motrin] 600 mg PO Q8H PRN #30 tablet 02/15/18 Unknown Rx Allergies Allergy/AdvReac Type Severity Reaction Status Date / Time aspirin Allergy Unknown Verified 07/21/13 14:36 codeine Allergy Rash Verified 07/21/13 14:36 Penicillins Allergy Rash Verified 07/21/13 14:36 haloperidol [From Haldol] AdvReac Rash Verified 07/21/13 14:36 haloperidol lactate AdvReac Rash Verified 07/21/13 14:36 [From Haldol] ED Review of Systems ROS: Stated complaint: SEVERE PAIN Other details as noted in HPI Comment: All other systems reviewed and negative Constitutional: denies: chills, fever Eyes: denies: eye pain, eye discharge, vision change ENT: denies: ear pain, throat pain Respiratory: denies: cough, shortness of breath, wheezing Cardiovascular: denies: chest pain, palpitations Endocrine: no symptoms reported Gastrointestinal: denies: abdominal pain, nausea, diarrhea Genitourinary: denies: urgency, dysuria, discharge Musculoskeletal: denies: back pain, joint swelling, arthralgia Skin: denies: rash, lesions Neurological: denies: headache, weakness, paresthesias Psychiatric: denies: anxiety, depression Hematological/Lymphatic: denies: easy bleeding, easy bruising ED Past Medical Hx - Past Medical History Hx Diabetes: Yes Hx Seizures: Yes Hx Psychiatric Treatment: Yes (bipolar, depression) Hx COPD: Yes - Surgical History Past Surgical History?: No - Social History Smoking Status: Never Smoker Substance Use Type: None - Medications Home Medications: Home Medications Medication Instructions Recorded Confirmed Last Taken Type Albuterol Sulfate [Proair 90 mcg IH Q4HR PRN #2 aer.pow.ba 02/15/18 03/18/18 Unknown Rx Respiclick] Benzonatate [Tessalon Perles] 100 mg PO Q8HR PRN #30 capsule 02/15/18 03/18/18 Unknown Rx Divalproex ER [Depakote ER] 500 mg PO BID 02/15/18 03/18/18 02/15/18 09:00 History 500mg Ibuprofen [Motrin] 600 mg PO Q8H PRN #30 tablet 02/15/18 03/18/18 Unknown Rx Ziprasidone HCl [Geodon] 80 mg PO QHS 02/15/18 03/18/18 02/14/18 21:00 History 80mg ED Physical Exam - General Limitations: No Limitations General appearance: alert, in no apparent distress - Head Head exam: Present: atraumatic, normocephalic - Eye Eye exam: Present: normal appearance - ENT ENT exam: Present: mucous membranes moist - Neck Neck exam: Present: normal inspection - Respiratory Respiratory exam: Present: normal lung sounds bilaterally. Absent: respiratory distress - Cardiovascular Cardiovascular Exam: Present: regular rate, normal rhythm. Absent: systolic murmur, diastolic murmur, rubs, gallop - GI/Abdominal GI/Abdominal exam: Present: soft, normal bowel sounds - Extremities Exam Extremities exam: Present: normal inspection - Back Exam Back exam: Present: normal inspection - Neurological Exam Neurological exam: Present: alert, oriented X3, CN II-XII intact. Absent: motor sensory deficit - Psychiatric Psychiatric exam: Present: normal affect, normal mood - Skin Skin exam: Present: warm, dry, intact, normal color. Absent: rash ED Course Vital Signs 03/23/18 14:22 Temperature 98.1 F Pulse Rate 77 Respiratory 16 Rate Blood Pressure 156/68 O2 Sat by Pulse 97 Oximetry ED Medical Decision Making - Medical Decision Making Patient asked if I could give her something before she left Patient was given a sandwich Critical care attestation.: If time is entered above; I have spent that time in minutes in the direct care of this critically ill patient, excluding procedure time. ED Disposition Clinical Impression: Well adult exam Disposition: DC- TO HOME OR SELFCARE Is pt being admited?: No Does the pt Need Aspirin: No Condition: Stable Instructions: Normal Exam (ED) Additional Instructions: return if worse Referrals: PRIMARY CARE, [Primary Care Provider] - 3-5 Days [facility] [Outside] - 3-5 Days Time of Disposition: 15:47
== END 2018-03-23 15:55 | disposition home or self-care (01) ==
LOC: ED 13:55
DX: M79.1 Myalgia (principal)
CPT/HCPCS: 99282

== ENCOUNTER 2018-04-03 00:24 | Emergency (ER) | payer MEDICARE ==
[2018-04-03 02:03] LABS: Basophils # (Auto) 0.1 K/mm3 (0.0-0.1); Basophils % (Auto) 0.7 % (0.0-1.8); Eosinophils # (Auto) 0.8 K/mm3 (0.0-0.4); Eosinophils % (Auto) 7.7 % (0.0-4.3); Hematocrit 38.7 % (30.3-42.9); Hemoglobin 13.3 gm/dl (10.1-14.3); Lymphocytes # (Auto) 3.7 K/mm3 (1.2-5.4); Lymphocytes % (Auto) 33.9 % (13.4-35.0); Mean Corpuscular HGB Conc 34 % (30-34); Mean Corpuscular Hemoglobin 33 pg (28-32); Mean Corpuscular Volume 96 fl (79-97); Monocytes # (Auto) 0.9 K/mm3 (0.0-0.8); Monocytes % (Auto) 8.1 % (0.0-7.3); Platelet Count 324 K/mm3 (140-440); Red Blood Count 4.02 M/mm3 (3.65-5.03); Red Cell Distribution Width 13.5 % (13.2-15.2)
[2018-04-03 02:19] LABS: BUN/Creatinine Ratio 20; Blood Urea Nitrogen 10 mg/dL (7-17); Calcium 9.9 mg/dL (8.4-10.2); Hemolysis Index 2
[2018-04-03 03:43] LABS: Bilirubin,Urine NEG (Negative); Blood,Urine NEG (Negative); Color,Urine Straw (Yellow); Protein,Urine <15 mg/dL mg/dL (Negative); Urobilinogen,Urine < 2.0 mg/dL (<2.0); WBC,Urine < 1.0 /HPF (0.0-6.0)
[2018-04-03 03:51] LABS: Amphetamine Screen,Urine PRESUMPTIVE NEGATIVE; Benzodiazepines Screen,Urine PRESUMPTIVE NEGATIVE; Cannabinoid Screen,Urine PRESUMPTIVE NEGATIVE; Cocaine Screen,Urine PRESUMPTIVE NEGATIVE; Methadone Screen,Urine PRESUMPTIVE NEGATIVE; Opiate Screen,Urine PRESUMPTIVE NEGATIVE
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
[2018-04-04] MEDS ORDERED: NACL 0.9% 1000 ML 1,000 ML ONE ×2 (03:49→21:48)
[2018-04-04] MEDS ORDERED: NACL 0.9% 1000 ML 1,000 ML IV ONE ×3 (04:00→21:10)
[2018-04-04 17:08] LABS: BUN/Creatinine Ratio 28; Blood Urea Nitrogen 11 mg/dL (7-17); Calcium 8.9 mg/dL (8.4-10.2); Hemolysis Index 85
[2018-04-04 21:16] LABS: BUN/Creatinine Ratio 23; Blood Urea Nitrogen 9 mg/dL (7-17); Calcium 8.5 mg/dL (8.4-10.2); Hemolysis Index 11
[2018-04-04 21:57] VITALS: BP 152/74
[2018-04-04 23:29] LABS: BUN/Creatinine Ratio 20; Blood Urea Nitrogen 8 mg/dL (7-17); Calcium 8.5 mg/dL (8.4-10.2); Hemolysis Index 10
== END 2018-04-05 04:00 | disposition home or self-care (01) ==
LOC: ED 00:24 → EEVIPCON 00:24 → ED 04-05 04:00
DX: T67.9XXA Effect of heat and light, unspecified, initial encounter (principal); Z00.8 Encounter for other general examination; E11.9 Type 2 diabetes mellitus without complications; F31.9 Bipolar disorder, unspecified; J44.9 Chronic obstructive pulmonary disease, unspecified; Z79.899 Other long term (current) drug therapy
CPT/HCPCS: 36415; 80048; 80164; 80307; 81001; 82962; 84703; 85025; 99284; G0480; J7030; 80320

== ENCOUNTER 2021-09-23 08:47 | Emergency (ER) | payer MEDICARE ==
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
[2021-09-23] MEDS ORDERED: ZIPRASIDONE MESYLATE 20 MG VIAL IM ONE ×2 (09:39→09:40)
[2021-09-23] MEDS ORDERED: ZIPRASIDONE MESYLATE 20 MG VIAL IM STA ×2 (09:44→10:06)
[2021-09-23] MEDS ORDERED: metFORMIN 500 MG TAB PO SCH (10:00)
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
[2021-09-23] MEDS: DIVALPROEX ER 500 MG TAB PO SCH (13:04)
[2021-09-23] MEDS: risperiDONE 1 MG TAB PO SCH (13:04)
[2021-09-23 17:06] LABS: Basophils % (Auto) 0.8 % (0.0-1.8); Eosinophils # (Auto) 0.2 K/mm3 (0.0-0.4); Eosinophils % (Auto) 3.2 % (0.0-4.3); Hematocrit 40.1 % (30.3-42.9); Hemoglobin 13.9 gm/dl (10.1-14.3); Lymphocytes # (Auto) 1.9 K/mm3 (1.2-5.4); Lymphocytes % (Auto) 31.4 % (13.4-35.0); Mean Corpuscular HGB Conc 35 % (30-34); Mean Corpuscular Volume 94 fl (79-97); Monocytes # (Auto) 0.6 K/mm3 (0.0-0.8); Monocytes % (Auto) 10.2 % (0.0-7.3); Platelet Count 257 K/mm3 (140-440); Red Blood Count 4.28 M/mm3 (3.65-5.03); Red Cell Distribution Width 15.6 % (13.2-15.2)
[2021-09-23 17:17] LABS: BUN/Creatinine Ratio 20; Blood Urea Nitrogen 18 mg/dL (7-17); Calcium 10.1 mg/dL (8.4-10.2); Hemolysis Index 28
[2021-09-23 17:41] LABS: Bilirubin,Urine NEG (Negative); Blood,Urine NEG (Negative); Color,Urine Yellow (Yellow); Mucus,Urine FEW /HPF; Protein,Urine <15 mg/dL mg/dL (Negative)
[2021-09-23 18:06] LABS: RBC,Urine < 1.0 /HPF (0.0-6.0)
[2021-09-23 18:22] LABS: Amphetamine Screen,Urine Negative; Benzodiazepines Screen,Urine Negative; Cannabinoid Screen,Urine Negative; Cocaine Screen,Urine Negative; Methadone Screen,Urine Negative; Opiate Screen,Urine Negative
[2021-09-23] MEDS ORDERED: LORazepam 1 MG TAB PO ONE (19:09)
[2021-09-23 19:49] VITALS: BP 126/59
[2021-09-23] MEDS ORDERED: DOXEPIN 10 MG CAP PO SCH (22:00)
[2021-09-24] MEDS ORDERED: LORazepam 2 MG TAB ONE (01:16)
[2021-09-24] MEDS ORDERED: DIVALPROEX DR 500 MG TAB ONE (01:18)
[2021-09-24] MEDS: DIVALPROEX ER 500 MG TAB PO SCH (01:46)
[2021-09-24] MEDS: risperiDONE 1 MG TAB PO SCH (01:46)
== END 2021-09-24 08:50 ==
LOC: ED 08:47
DX: F31.9 Bipolar disorder, unspecified (principal); J44.9 Chronic obstructive pulmonary disease, unspecified; E11.9 Type 2 diabetes mellitus without complications; F17.200 Nicotine dependence, unspecified, uncomplicated; Z86.59 Personal history of other mental and behavioral disorders; Z88.0 Allergy status to penicillin; Z88.5 Allergy status to narcotic agent; Z88.8 Allergy status to other drugs, medicaments and biological substances; Z79.899 Other long term (current) drug therapy; Z20.822 Contact with and (suspected) exposure to COVID-19
CPT/HCPCS: 36415; 80048; 80307; 81001; 82962; 85025; 96372; 99285; J3486; U0003; 80320; G0480

== ENCOUNTER 2022-01-11 12:48 | Emergency (ER) | payer MEDICARE ==
[2022-01-11] MEDS ORDERED: predniSONE 20 MG TAB PO ONE (14:08)
[2022-01-11] MEDS ORDERED: IPRATROPIUM/ALBUTEROL SULFATE 3 ML AMPUL.NEB IH ONE ×2 (14:08→15:34)
--- NOTE | 2022-01-11 14:13 | XRay Report ---
CHEST 1 VIEW 01/11/2022 2:06 PM INDICATION / CLINICAL INFORMATION: sob. COMPARISON: 09/20/2018 FINDINGS: SUPPORT DEVICES: None. HEART / MEDIASTINUM: No significant abnormality. LUNGS / PLEURA: No significant pulmonary or pleural abnormality. No pneumothorax. ADDITIONAL FINDINGS: No significant additional findings. IMPRESSION: 1. No acute findings. Signer Name: Eugenio Bull Jr, MD Signed: 01/11/2022 2:08 PM Workstation Name: [id number]
[2022-01-11] MEDS ORDERED: NALOXONE 0.4 MG/1 ML INJ ONE (14:39)
[2022-01-11] MEDS ORDERED: NALOXONE 2 MG/2 ML INJ ONE (14:42)
[2022-01-11] MEDS ORDERED: SUCCINYLCHOLINE CHLORIDE 200 MG/10 ML INJ MDV ONE (14:47)
[2022-01-11] MEDS ORDERED: ETOMIDATE 20 MG/10 ML INJ IV ONE (14:47)
[2022-01-11 14:56] LABS: Basophils % (Auto) 0.4 % (0.0-1.8); Eosinophils % (Auto) 0.3 % (0.0-4.3); Hematocrit 42.4 % (30.3-42.9); Hemoglobin 14.4 gm/dl (10.1-14.3); Lymphocytes # (Auto) 1.2 K/mm3 (1.2-5.4); Lymphocytes % (Auto) 19.3 % (13.4-35.0); Mean Corpuscular HGB Conc 34 % (30-34); Mean Corpuscular Volume 93 fl (79-97); Monocytes # (Auto) 0.3 K/mm3 (0.0-0.8); Monocytes % (Auto) 5.2 % (0.0-7.3); Platelet Count 219 K/mm3 (140-440); Red Blood Count 4.54 M/mm3 (3.65-5.03); Red Cell Distribution Width 14.2 % (13.2-15.2)
[2022-01-11 15:08] LABS: Alanine Aminotransferase 12 units/L (7-56); Albumin 4.4 g/dL (3.9-5); Blood Urea Nitrogen 10 mg/dL (7-17); Calcium 9.6 mg/dL (8.4-10.2); Hemolysis Index 7
[2022-01-11 15:10] LABS: BUN/Creatinine Ratio 20
--- NOTE | 2022-01-11 15:59 | Emergency Department Report ---
ED Shortness of Breath HPI - General Chief Complaint: Dyspnea/Respdistress Stated Complaint: LONG Time Seen by Provider: 01/11/22 13:40 Source: patient, EMS Mode of arrival: Stretcher Limitations: No Limitations - History of Present Illness Initial Comments: 51-year-old female with a past medical history of substance abuse, bipolar disorder, tobacco use with history of reactive airway disease presents to the hospital from her psychiatrist office due to wheezing and shortness of breath. Patient initially room associated with 89%. Patient received 1 albuterol 5 mg with improvement in room air saturation to 98%. Patient does report feeling better and denies pain. He intermittently stares off to the side but does make eye contact and answer questions - Related Data Home Medications Medication Instructions Recorded Confirmed Last Taken Divalproex ER [Depakote ER] 500 mg PO BID 02/15/18 04/04/18 02/15/18 09:00 500 mg ARIPiprazole [Aripiprazole] 5 mg PO DAILY 01/11/22 01/11/22 Unknown Ipratropium (Nf) [Atrovent HFA 2 puff INHALATION QID 01/11/22 01/11/22 Unknown 17MCG/PUFF] PARoxetine [Paxil] 20 mg PO DAILY 01/11/22 01/11/22 Unknown Perphenazine [Trilafon] 4 mg PO DAILY 01/11/22 01/11/22 Unknown Previous Rx's Medication Instructions Recorded Last Taken Type Ibuprofen [Motrin 600 MG tab] 600 mg PO Q8H PRN #15 tablet 09/19/18 Unknown Rx Albuterol Mdi (or & Nicu Only) 2 puff IH QID PRN #1 inhalation 01/11/22 Unknown Rx [ProAir HFA Inhaler] Prednisone [predniSONE 10 mg 10 mg PO .TAPER #1 01/11/22 Unknown Rx (6-Day Pack, 21 Tabs)] Allergies Allergy/AdvReac Type Severity Reaction Status Date / Time aspirin Allergy Unknown Verified 09/23/21 08:50 codeine Allergy Rash Verified 09/23/21 08:50 Penicillins Allergy Rash Verified 09/23/21 08:50 haloperidol [From Haldol] AdvReac Rash Verified 09/23/21 08:50 haloperidol lactate AdvReac Rash Verified 09/23/21 08:50 [From Haldol] ED Review of Systems ROS: Stated complaint: LONG Other details as noted in HPI Comment: All other systems reviewed and negative ED Past Medical Hx - Past Medical History Hx Diabetes: Yes Hx Seizures: Yes Hx Psychiatric Treatment: Yes (bipolar, depression) Hx COPD: Yes - Social History Smoking Status: Current Every Day Smoker Substance Use Type: None - Medications Home Medications: Home Medications Medication Instructions Recorded Confirmed Last Taken Type Divalproex ER [Depakote ER] 500 mg PO BID 02/15/18 04/04/18 02/15/18 09:00 History 500 mg Ibuprofen [Motrin 600 MG tab] 600 mg PO Q8H PRN #15 tablet 09/19/18 Unknown Rx ARIPiprazole [Aripiprazole] 5 mg PO DAILY 01/11/22 01/11/22 Unknown History Albuterol Mdi (or & Nicu Only) 2 puff IH QID PRN #1 inhalation 01/11/22 Unknown Rx [ProAir HFA Inhaler] Ipratropium (Nf) [Atrovent HFA 2 puff INHALATION QID 01/11/22 01/11/22 Unknown History 17MCG/PUFF] PARoxetine [Paxil] 20 mg PO DAILY 01/11/22 01/11/22 Unknown History Perphenazine [Trilafon] 4 mg PO DAILY 01/11/22 01/11/22 Unknown History Prednisone [predniSONE 10 mg 10 mg PO .TAPER #1 01/11/22 Unknown Rx (6-Day Pack, 21 Tabs)] ED Physical Exam - General Limitations: No Limitations - Other Other exam information: General: No acute distress Head: Atraumatic Eyes: normal appearance ENT: Moist mucous membranes Neck: Normal appearance, no midline tenderness Chest: Mild bilateral wheezing, no tachypnea accessory muscle use CV: Regular rate and rhythm Abdomen: Soft, normal bowel sounds, nontender, nondistended, no rebound or guarding Back: Normal inspection Extremity: Normal inspection, full range of motion Neuro: Alert answer questions intermittent mumbling speech, no focal deficit Psych: Cooperative Skin: No rash ED Course Vital Signs 01/11/22 01/11/22 01/11/22 13:02 14:13 15:40 Temperature 98.4 F Pulse Rate 80 Pulse Rate [ 96 H Bilateral] Respiratory Rate Respiratory 20 Rate [Bilateral ] Blood Pressure 120/70 [Left] O2 Sat by Pulse 98 Oximetry 01/11/22 18:40 Temperature 98.5 F Pulse Rate 82 Pulse Rate [ Bilateral] Respiratory 16 Rate Respiratory Rate [Bilateral ] Blood Pressure 122/79 [Left] O2 Sat by Pulse 100 Oximetry ED Medical Decision Making - Lab Data Result diagrams: 01/11/22 14:17 01/11/22 14:17 Lab Results 01/11/22 01/11/22 01/11/22 Range/Units 14:17 14:17 14:17 WBC 6.3 (4.5-11.0) K/mm3 RBC 4.54 (3.65-5.03) M/mm3 Hgb 14.4 H (10.1-14.3) gm/dl Hct 42.4 (30.3-42.9) % MCV 93 (79-97) fl MCH 32 (28-32) pg MCHC 34 (30-34) % RDW 14.2 (13.2-15.2) % Plt Count 219 (140-440) K/mm3 Lymph % (Auto) 19.3 (13.4-35.0) % [place] % (Auto) 5.2 (0.0-7.3) % Eos % (Auto) 0.3 (0.0-4.3) % Baso % (Auto) 0.4 (0.0-1.8) % Lymph # (Auto) 1.2 (1.2-5.4) K/mm3 [place] # (Auto) 0.3 (0.0-0.8) K/mm3 Eos # (Auto) 0.0 (0.0-0.4) K/mm3 Baso # (Auto) 0.0 (0.0-0.1) K/mm3 Seg Neutrophils % 74.8 H (40.0-70.0) % Seg Neutrophils # 4.7 (1.8-7.7) K/mm3 Sodium 136 L (137-145) mmol/L Potassium 3.9 (3.6-5.0) mmol/L Chloride 96.2 L (98-107) mmol/L Carbon Dioxide 26 (22-30) mmol/L Anion Gap 18 mmol/L BUN 10 (7-17) mg/dL Creatinine 0.5 L (0.6-1.2) mg/dL Estimated GFR > 60 ml/min BUN/Creatinine Ratio 20 % Glucose 125 H (65-100) mg/dL Calcium 9.6 (8.4-10.2) mg/dL Total Bilirubin 0.20 (0.1-1.2) mg/dL AST 16 (5-40) units/L ALT 12 (7-56) units/L Alkaline Phosphatase 100 (35-129) units/L Troponin T < 0.010 (0.00-0.029) ng/mL Total Protein 7.3 (6.3-8.2) g/dL Albumin 4.4 (3.9-5) g/dL Albumin/Globulin Ratio 1.5 % - Radiology Data Radiology results: report reviewed CHEST 1 VIEW 01/11/2022 2:06 PM INDICATION / CLINICAL INFORMATION: sob. COMPARISON: 09/20/2018 FINDINGS: SUPPORT DEVICES: None. HEART / MEDIASTINUM: No significant abnormality. LUNGS / PLEURA: No significant pulmonary or pleural abnormality. No pneumothorax. ADDITIONAL FINDINGS: No significant additional findings. IMPRESSION: 1. No acute findings. - Medical Decision Making 51-year-old smoker with psychiatric history presents to the hospital wheezing and hypoxia at the scene. Symptoms improved with bronchodilators. Labs and chest x-ray unremarkable. Patient will be discharged with bronchitis and meds Patient does have episodes of coughing intermittently speaking and has a known psychiatric diagnosis. I was informed by her staff at triage the patient that the psychiatrist was more concerned about her respiratory issues to her current psychiatric status and have been making adjustments to her medications. Apparently she is typically in a much more agitated state and is currently more subdued while on this medication. Patient prepped for discharge pending safe discharge with a ride home. Critical Care Time: No Critical care attestation.: If time is entered above; I have spent that time in minutes in the direct care of this critically ill patient, excluding procedure time. ED Disposition Clinical Impression: Acute bronchitis, Bipolar disorder Disposition: 01 HOME / SELF CARE / HOMELESS Is pt being admited?: No Does the pt Need Aspirin: No Condition: Stable Instructions: Acute Bronchitis, Adult, [id number], Acute Bronchitis (ED) Additional Instructions: Take the medication as prescribed. Follow-up with your doctor or doctor/clinic provided. Return if symptoms worsen as indicated by your discharge instructions. Prescriptions: Prednisone [predniSONE 10 mg (6-Day Pack, 21 Tabs)] 10 mg PO .TAPER #1 Albuterol Mdi (or & Nicu Only) [ProAir HFA Inhaler] 2 puff IH QID PRN #1 inhalation PRN Reason: Shortness Of Breath Referrals: PAUL HARE MD [Staff Physician] - 3-5 Days [facility] [Provider Group] - 3-5 Days Time of Disposition: 16:39
[2022-01-11 21:05] VITALS: BP 132/74
== END 2022-01-11 21:03 | disposition home or self-care (01) ==
LOC: ED 12:48
DX: J20.9 Acute bronchitis, unspecified (principal); F31.9 Bipolar disorder, unspecified; F17.200 Nicotine dependence, unspecified, uncomplicated; E11.9 Type 2 diabetes mellitus without complications; Z88.6 Allergy status to analgesic agent; Z88.0 Allergy status to penicillin
CPT/HCPCS: 36415; 71045; 80053; 84484; 85025; 94640; 94644; 99284; J3490; J0330; J2310

== ENCOUNTER 2022-01-12 11:00 | Emergency (ER) | payer MEDICARE ==
[2022-01-12 11:46] VITALS: BP 115/49
== END 2022-01-12 13:45 | disposition left against medical advice (07) ==
LOC: ED 11:00
DX: M25.539 Pain in unspecified wrist (principal); Z53.21 Procedure and treatment not carried out due to patient leaving prior to being seen by health care provider